=== PATIENT | male | born 1995 | race African-American/Black ===

== ENCOUNTER 2024-05-26 17:03 | Emergency (ER) | payer SELFPAY ==
[~2024-05-26] VITALS: Ht 177.8 cm; Wt 85.0 kg
[2024-05-26 17:13] VITALS: BP 121/86; PULSE 90; TEMP 98; O2SAT 100
[2024-05-26] MEDS ORDERED: SULF1TAB48 MT (19:54)
[2024-05-26 21:00] VITALS: RESP 18
== END 2024-05-26 21:06 ==
LOC: ER 17:03
DX: L02.31 Cutaneous abscess of buttock (principal); K62.89 Other specified diseases of anus and rectum; K50.90 Crohn's disease, unspecified, without complications; F25.9 Schizoaffective disorder, unspecified; Z88.0 Allergy status to penicillin
CPT/HCPCS: 74176; 99284; Z7610